=== PATIENT | male | born 1960 | race Caucasian/White ===

== ENCOUNTER 2019-05-07 19:06 | Observation (INO) | payer OTHER ==
[~2019-05-07] VITALS: Ht 180.3 cm; Wt 130.0 kg
[2019-05-09 07:34] VITALS: BP 142/85
== END 2019-05-09 14:00 | disposition home or self-care (01) ==
LOC: ED 19:58 → EDIP 23:34 → INTOOBSV 23:34 → 3NE 05-08 00:13 → DCLOUNGE 05-09 13:45
PROVIDERS: ADMIT Family Medicine; ATTEND Family Medicine
DX: R65.10 Systemic inflammatory response syndrome (SIRS) of non-infectious origin without acute organ dysfunction (principal); R50.9 Fever, unspecified; D64.9 Anemia, unspecified; E66.01 Morbid (severe) obesity due to excess calories; I10 Essential (primary) hypertension; M10.9 Gout, unspecified; E11.9 Type 2 diabetes mellitus without complications; G47.33 Obstructive sleep apnea (adult) (pediatric); Z79.899 Other long term (current) drug therapy; Z79.84 Long term (current) use of oral hypoglycemic drugs
CPT/HCPCS: 36415; 71045; 71275; 73590; 73610; 80053; 80307; 81003; 83036; 83605; 83880; 84145; 84484; 85025; 87040; 93005; 96361; 96365; 96366; 96372; 96375; 96376; 99285; G0378; J0696; J1644; J2270; J7030; Q9967